=== PATIENT | male | born 2000 | race African-American/Black ===

== ENCOUNTER 2019-07-14 19:46 | Emergency (ER) | payer OTHER ==
[2019-07-14] MEDS ORDERED: Pantoprazole 40 MG Vial IVPUSH ONE (20:17)
[2019-07-14] MEDS ORDERED: Sodium Chloride 0.9% 2.5 ML Syringe FLUSH PRN (20:17)
[2019-07-14] MEDS ORDERED: Aspirin 81 MG Tab.Chew PO ONE (20:17)
[2019-07-14] MEDS ORDERED: Sodium Chloride 0.9% 10 ML Syringe FLUSH PRN (20:17)
--- NOTE | 2019-07-14 20:22 | EDM.PDOC ---
ED HPI GENERAL MEDICAL PROBLEM - General Chief Complaint: General Stated Complaint: PT HAS CHEST PAINS Time Seen by Provider: 07/14/19 20:09 - History of Present Illness INITIAL COMMENTS - FREE TEXT/NARRATIVE: HISTORY AND PHYSICAL: History of present illness: The patient is a 19-year-old male with no significant past medical history who presents with 3 days of lower chest pain/epigastric pain that starts after he eats. The patient says that he has a history of lactose intolerance but he is telling me that every time he eats anything no matter what the food type he gets this discomfort and last for about 10 minutes. He does not take any medication to make it go away. He says that drinking water makes him feel like he is flushing problem out. He has no nausea or vomiting no increased gas and no black or bloody stools. He doesn't have specific right upper or left upper quadrant tenderness and denies any abdominal pain nor any flank pain. He's had no trauma to the area no fevers chills shortness of breath. The discomfort is localized to the lower sternum and does not radiate and is not associated with diaphoresis shortness of breath nausea or lightheadedness. The patient says that he came in tonight because it lasted more than 10 minutes after eating. He says that it started about 6:30, just under 2 hours ago. The pain is similar to all the prior episodes he has had over the last 3 days and he says it occurs after every time that he eats. He is active and plays basketball and says that he doesn't eat junk foods fatty foods fried foods. He says the pain happens with every food not any specific trigger. The patient denies any social history and has no family history of cardiac disease. On my evaluation an EKG the patient says the discomfort is a 1/10 but that "is pushing it". Review of systems: As per history of present illness and below otherwise all systems reviewed and negative. Past medical history: As per history of present illness and as reviewed below otherwise noncontributory. Surgical history: As per history of present illness and as reviewed below otherwise noncontributory. Social history: No reported history of drug or alcohol abuse. Family history: As per history of present illness and as reviewed below otherwise noncontributory. Physical exam: General: Well-developed lean and athletic 19-year-old man who is nontoxic and moves easily in the ED. Vital signs are noted by me HEENT: Atraumatic, normocephalic, negative for conjunctival pallor or scleral icterus, mucous membranes moist, throat clear, neck supple, nontender, trachea midline. Lungs: Clear to auscultation, breath sounds equal bilaterally, chest nontender. No defects deformities crepitus wheezing or stridor Heart: S1S2, regular, negative for clicks, rubs, or JVD. No overt murmurs Abdomen: Soft, nondistended, nontender. Negative for masses or hepatosplenomegaly. Negative for costovertebral tenderness. Pelvis: Stable nontender. Genitourinary: Deferred. Rectal: Deferred. Extremities: Atraumatic, negative for cords or calf pain. Neurovascular unremarkable. No pedal edema or leg asymmetry Neuro: Awake, alert, oriented. Cranial nerves II through XII unremarkable. Cerebellum unremarkable. Motor and sensory unremarkable throughout. Exam nonfocal. Diagnostics: EKG chest x-ray CBC CMP amylase lipase troponin Therapeutics: IV O2 monitor aspirin Protonix Patient is currently asymptomatic and is aware of all testing results. I've advised him to start a food journal and a pain journal to document these episodes of pain and I will give him a prescription for Protonix here and I advised him on reasons to return to the ED Impression: Post prandial chest/epigastric pain Definitive disposition and diagnosis as appropriate pending reevaluation and review of above. chest pain Pain Score (Numeric/FACES): 6 - Related Data Allergies Allergy/AdvReac Type Severity Reaction Status Date / Time lactose Allergy Other Verified 07/14/19 20:15 Home Meds: Home Meds . [No Known Home Meds] 07/14/19 [History] ED ROS GENERAL - Review of Systems Review Of Systems: ROS reveals no pertinent complaints other than HPI. ED EXAM, GENERAL - Physical Exam Exam: See Below (see Dictation) Course - Vital Signs Last Recorded V/S: Last Vital Signs Temp 36.4 C 07/14/19 21:22 Pulse 56 L 07/14/19 21:18 Resp 16 07/14/19 21:18 BP 115/65 07/14/19 21:18 Pulse Ox 97 07/14/19 21:18 - Orders/Labs/Meds Orders: Active Orders 24 hr Category Date Time Status Cardiac Monitoring [RC] . DIRECTED Care 07/14/19 20:17 Active EKG Documentation Completion [RC] STAT Care 07/14/19 19:59 Active Pulse Oximetry [RC] ASDIRECTED Care 07/14/19 20:17 Active Sodium Chloride 0.9% [Saline Flush] Med 07/14/19 20:17 Active 10 ml FLUSH ASDIRECTED PRN Sodium Chloride 0.9% [Saline Flush] Med 07/14/19 20:17 Active 2.5 ml FLUSH ASDIRECTED PRN Saline Lock Insert [OM.PC] Stat Oth 07/14/19 20:17 Ordered Medication Orders Sodium Chloride (Saline Flush) 10 ml FLUSH ASDIRECTED PRN PRN Reason: Keep Vein Open Last Admin: 07/14/19 20:37 Dose: 10 ml Sodium Chloride (Saline Flush) 2.5 ml FLUSH ASDIRECTED PRN PRN Reason: Keep Vein Open Last Admin: 07/14/19 20:37 Dose: 2.5 ml Labs: Laboratory Tests 07/14/19 07/14/19 Range/Units 20:25 20:25 WBC 9.51 (4.0-11.0) K/uL RBC 5.09 (4.50-5.90) M/uL Hgb 14.6 (13.0-17.0) g/dL Hct 44.6 (38.0-50.0) % MCV 87.6 (80.0-98.0) fL MCH 28.7 (27.0-32.0) pg MCHC 32.7 (31.0-37.0) g/dL RDW Std Deviation 41.5 (28.0-62.0) fl RDW Coeff of Christiano 13 (11.0-15.0) % Plt Count 210 (150-400) K/uL MPV 10.60 (7.40-12.00) fL Neut % (Auto) 73.9 (48.0-80.0) % Lymph % (Auto) 19.1 (16.0-40.0) % [place] % (Auto) 6.6 (0.0-15.0) % Eos % (Auto) 0.1 (0.0-7.0) % Baso % (Auto) 0.3 (0.0-1.5) % Neut # (Auto) 7.0 H (1.4-5.7) K/uL Lymph # (Auto) 1.8 (0.6-2.4) K/uL [place] # (Auto) 0.6 (0.0-0.8) K/uL Eos # (Auto) 0.0 (0.0-0.7) K/uL Baso # (Auto) 0.0 (0.0-0.1) K/uL Nucleated RBC % 0.0 /100WBC Nucleated RBCs # 0 K/uL Sodium 141 (136-148) mmol/L Potassium 4.5 (3.5-5.1) mmol/L Chloride 105 (98-107) mmol/L Carbon Dioxide 26.6 (21.0-32.0) mmol/L BUN 23 H (7.0-18.0) mg/dL Creatinine 1.6 H (0.8-1.3) mg/dL Est Cr Clr Drug Dosing 80.16 mL/min Estimated GFR (MDRD) > 60.0 ml/min Glucose 88 (74-106) mg/dL Calcium 8.9 (8.5-10.1) mg/dL Total Bilirubin 0.4 (0.2-1.0) mg/dL AST 24 (15-37) IU/L ALT 24 (14-63) IU/L Alkaline Phosphatase 82 (46-116) U/L Troponin I < 0.050 (0.000-0.056) ng/mL Total Protein 7.5 (6.4-8.2) g/dL Albumin 4.2 (3.4-5.0) g/dL Globulin 3.3 (2.6-4.0) g/dL Albumin/Globulin Ratio 1.3 (0.9-1.6) Amylase 78 (25-115) U/L Lipase 96 (73-393) U/L Meds: Medications Generic Name Dose Route Start Last Admin Trade Name Freq PRN Reason Stop Dose Admin Sodium Chloride 10 ml 07/14/19 20:07/14/19 20:37 Saline Flush FLUSH 10 ml ASDIRECTED PRN Administration Keep Vein Open Sodium Chloride 2.5 ml 07/14/19 20:17 07/14/19 20:37 Saline Flush FLUSH 2.5 ml ASDIRECTED PRN Administration Keep Vein Open Discontinued Medications Generic Name Dose Route Start Last Admin Trade Name Amilcar PRN Reason Stop Dose Admin Aspirin 324 mg 07/14/19 20:17 07/14/19 20:36 Aspirin PO 07/14/19 20:18 324 mg ONETIME ONE Administration Pantoprazole Sodium 80 mg 07/14/19 20:17 07/14/19 20:36 Protonix Iv IVPUSH 07/14/19 20:18 80 mg .BOLUS ONE Administration Departure - Departure Time of Disposition: 21:26 Disposition: Home, Self-Care 01 Condition: Good Clinical Impression: Postprandial epigastric pain, Atypical chest pain - Discharge Information Referrals: PCP,None [Primary Care Provider] - Forms: ED Department Discharge Additional Instructions: The following information is given to patients seen in the emergency department who are being discharged to home. This information is to outline your options for follow-up care. We provide all patients seen in our emergency department with a follow-up referral. The need for follow-up, as well as the timing and circumstances, are variable depending upon the specifics of your emergency department visit. If you don't have a primary care physician on staff, we will provide you with a referral. We always advise you to contact your personal physician following an emergency department visit to inform them of the circumstance of the visit and for follow-up with them and/or the need for any referrals to a consulting specialist. The emergency department will also refer you to a specialist when appropriate. This referral assures that you have the opportunity for followup care with a specialist. All of these measure are taken in an effort to provide you with optimal care, which includes your followup. Under all circumstances we always encourage you to contact your private physician who remains a resource for coordinating your care. When calling for followup care, please make the office aware that this follow-up is from your recent emergency room visit. If for any reason you are refused follow-up, please contact the [facility] emergency department at and ask to speak to the emergency department charge nurse. [facility] Primary care- [place] [address] Please monitor your symptoms and keep a journal of these episodes of pain. Push hydration and avoid caffeinated products. He did land diet until followed up in the clinic and please call and schedule a follow-up appointment with your provider or one of hours for reevaluation further care. Return to ER as needed and as discussed. Please fill and start your Protonix prescription tomorrow - My Orders Last 24 Hours: My Active Orders 07/14/19 20:17 Cardiac Monitoring [RC] . DIRECTED Pulse Oximetry [RC] ASDIRECTED Sodium Chloride 0.9% [Saline Flush] 10 ml FLUSH ASDIRECTED PRN Sodium Chloride 0.9% [Saline Flush] 2.5 ml FLUSH ASDIRECTED PRN Saline Lock Insert [OM.PC] Stat - Assessment/Plan Last 24 Hours: My Active Orders 07/14/19 20:17 Cardiac Monitoring [RC] . DIRECTED Pulse Oximetry [RC] ASDIRECTED Sodium Chloride 0.9% [Saline Flush] 10 ml FLUSH ASDIRECTED PRN Sodium Chloride 0.9% [Saline Flush] 2.5 ml FLUSH ASDIRECTED PRN Saline Lock Insert [OM.PC] Stat
[2019-07-14 20:58] LABS: BLOOD UREA NITROGEN,BUN 23 mg/dL (7.0-18.0); CARBON DIOXIDE,CO2 26.6 mmol/L (21.0-32.0); CHLORIDE,CL 105 mmol/L (98-107); GLUCOSE RANDOM 88 mg/dL (74-106); LIPASE 96 U/L (73-393); POTASSIUM,K 4.5 mmol/L (3.5-5.1); SODIUM,NA 141 mmol/L (136-148)
--- NOTE | 2019-07-14 21:07 | CR ---
INDICATION: Chest pain and shortness of breath. TECHNIQUE: AP upright portable chest. FINDINGS: Monitoring leads overlie the chest wall. The lungs are clear without pneumothorax. Normal heart size and pulmonary vascular pattern with no pleural effusions. Visualized osseous thorax is unremarkable. IMPRESSION: No acute radiographic chest finding. Dictated by Gonzalez Avila MD @ Jul 14 2019 9:05PM Signed by Dr. Gonzalez Avila @ Jul 14 2019 9:06PM
== END 2019-07-14 21:30 | disposition home or self-care (01) ==
LOC: MW.ED 19:46
DX: R10.13 Epigastric pain (principal); R07.89 Other chest pain; Z91.011 Allergy to milk products
CPT/HCPCS: 71045; 80053; 82150; 83690; 84484; 85025; 93005; 96374; 99285; A9270; C9113; 99284

== ENCOUNTER 2019-11-08 14:28 | Emergency (ER) | payer OTHER ==
--- NOTE | 2019-11-08 15:13 | EDM.PDOC ---
ED HPI GENERAL MEDICAL PROBLEM - General Chief Complaint: General Stated Complaint: STUFFY NOSE,BURNING CHEST SENSATION Time Seen by Provider: 11/08/19 14:33 Source of Information: Reports: Patient History Limitations: Reports: No Limitations - History of Present Illness INITIAL COMMENTS - FREE TEXT/NARRATIVE: HISTORY AND PHYSICAL: History of present illness: Patient is a 19-year-old male who presents to the ED today with concern of cough and stuffy/runny nose over the past 3 days. 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 Patient states he has not taken anything for his symptoms. Patient denies any health history. Patient denies fever, chills, chest pain, shortness of breath. Denies headache, neck stiff ness, change in vision, syncope, or near syncope. Denies nausea, vomiting, abdominal pain, diarrhea, constipation, or dysuria. Has not noted any blood in urine or stool. Patient has been eating and drinking appropriately. Review of systems: As per history of present illness and below otherwise all systems reviewed and negative. Past medical history: As per history of present illness and as reviewed below otherwise noncontributory. Surgical history: As per history of present illness and as reviewed below otherwise noncontributory. Social history: See social history for further information Family history: As per history of present illness and as reviewed below otherwise noncontributory. Physical exam: General: Patient is alert, oriented, and in no acute distress. Patient sitting comfortably on exam table. HEENT: Atraumatic, normocephalic, pupils equal and reactive bilaterally, negative for conjunctival pallor or scleral icterus, mucous membranes moist, TMs normal bilaterally, throat clear, neck supple, nontender, trachea midline. No drooling or trismus noted. No meningeal signs. No hot potato voice noted. Lungs: Clear to auscultation, breath sounds equal bilaterally, chest nontender. Dry cough on exam. Heart: S1S2, regular rate and rhythm without overt murmur Abdomen: Soft, nondistended, nontender. Negative for masses or hepatosplenomegaly. Negative for costovertebral tenderness. Pelvis: Stable nontender. Genitourinary: Deferred. Rectal: Deferred. Skin: Intact, warm, dry. No lesions or rashes noted. Extremities: Atraumatic, negative for cords or calf pain. Neurovascular unremarkable. Neuro: Awake, alert, oriented. Cranial nerves II through XII unremarkable. Cerebellum unremarkable. Motor and sensory unremarkable throughout. Exam nonfocal. Notes: Patient is out of the window for treatment with Tamiflu. Discussed importance for follow-up with a primary care provider. Voices understanding and is agreeable to plan of care. Denies any further questions or concerns at this time. Diagnostics: Influenza, Strep, CXR Therapeutics: None Prescription: None Impression: Influenza B Plan: 1. You can alternate ibuprofen and Tylenol as directed for pain and discomfort. 2. Follow-up with a primary care provider as discussed. Return to the ED as needed and as discussed. Definitive disposition and diagnosis as appropriate pending reevaluation and review of above. sinus Pain Score (Numeric/FACES): 4 - Related Data Allergies Allergy/AdvReac Type Severity Reaction Status Date / Time lactose Allergy Other Verified 11/08/19 14:54 Home Meds: Home Meds . [No Known Home Meds] 07/14/19 [History] Past Medical History - Past Health History Medical/Surgical History: Denies Medical/Surgical History - Infectious Disease History Infectious Disease History: Reports: Chicken Pox - Past Surgical History HEENT Surgical History: Reports: Oral Surgery Social & Family History - Family History Family Medical History: Noncontributory - Tobacco Use Smoking Status *Q: Never Smoker - Caffeine Use Caffeine Use: Reports: None - Recreational Drug Use Recreational Drug Use: No ED ROS GENERAL - Review of Systems Review Of Systems: Comprehensive ROS is negative, except as noted in HPI. ED EXAM, GENERAL - Physical Exam Exam: See Below (see dictation) Course - Vital Signs Last Recorded V/S: Last Vital Signs Temp 98.4 F 11/08/19 14:53 Pulse 52 L 11/08/19 14:53 Resp 18 11/08/19 14:53 BP 137/77 11/08/19 14:53 Pulse Ox 100 11/08/19 14:53 - Orders/Labs/Meds Orders: Active Orders 24 hr Category Date Time Status EKG Documentation Completion [RC] STAT Care 11/08/19 15:01 Active Chest 2V [CR] Stat Exams 11/08/19 15:10 Stop Req CULTURE STREP A CONFIRMATION [RM] Stat Lab 11/08/19 14:47 Results STREP SCRN A RAPID W CULT CONF [RM] Stat Lab 11/08/19 14:47 Results Departure - Departure Time of Disposition: 15:27 Disposition: Home, Self-Care 01 Clinical Impression: Influenza B - Discharge Information Referrals: PCP,None [Primary Care Provider] - Forms: ED Department Discharge Additional Instructions: The following information is given to patients seen in the emergency department who are being discharged to home. This information is to outline your options for follow-up care. We provide all patients seen in our emergency department with a follow-up referral. The need for follow-up, as well as the timing and circumstances, are variable depending upon the specifics of your emergency department visit. If you don't have a primary care physician on staff, we will provide you with a referral. We always advise you to contact your personal physician following an emergency department visit to inform them of the circumstance of the visit and for follow-up with them and/or the need for any referrals to a consulting specialist. The emergency department will also refer you to a specialist when appropriate. This referral assures that you have the opportunity for follow-up care with a specialist. All of these measure are taken in an effort to provide you with optimal care, which includes your follow-up. Under all circumstances we always encourage you to contact your private physician who remains a resource for coordinating your care. When calling for follow-up care, please make the office aware that this follow-up is from your recent emergency room visit. If for any reason you are refused follow-up, please contact the [facility] Emergency Department at and asked to speak to the emergency department charge nurse. [facility] Primary Care [address] [place] [id number] [address] [id number] 1. You can alternate ibuprofen and Tylenol as directed for pain and discomfort. 2. Follow-up with a primary care provider as discussed. Return to the ED as needed and as discussed. Sepsis Event Note - Evaluation Sepsis Screening Result: No Definite Risk - Focused Exam Vital Signs: Vital Signs Temp Pulse Resp BP Pulse Ox 11/08/19 14:53 98.4 F 52 L 18 137/77 100 Date Exam was Performed: 11/08/19 Time Exam was Performed: 15:26 - My Orders Last 24 Hours: My Active Orders 11/08/19 14:47 CULTURE STREP A CONFIRMATION [RM] Stat STREP SCRN A RAPID W CULT CONF [RM] Stat 11/08/19 15:01 EKG Documentation Completion [RC] STAT 11/08/19 15:10 Chest 2V [CR] Stat - Assessment/Plan Last 24 Hours: My Active Orders 11/08/19 14:47 CULTURE STREP A CONFIRMATION [RM] Stat STREP SCRN A RAPID W CULT CONF [RM] Stat 11/08/19 15:01 EKG Documentation Completion [RC] STAT 11/08/19 15:10 Chest 2V [CR] Stat
== END 2019-11-08 15:48 | disposition home or self-care (01) ==
LOC: MW.ED 14:28
DX: J10.1 Influenza due to other identified influenza virus with other respiratory manifestations (principal); Z91.011 Allergy to milk products
CPT/HCPCS: 87081; 87804; 87880-QW; 93005; 99282; 99283-25

== ENCOUNTER 2019-11-21 19:24 | Emergency (ER) | payer OTHER ==
--- NOTE | 2019-11-21 19:58 | EDM.PDOC ---
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 He says that he is here to get an x-ray because although he has been working with the link trainer maintenance man he is still having pain in the joint of the ankle and he is concerned that they missed something. He did not see an orthopedic provider or an ED provider at the time of the injury. They have been doing appropriate symptomatic care. He does not feel like the ankle is giving out and he has no distal foot pain or proximal tib -fib or knee pain. There were no associated injuries and there are no neurosensory changes in the foot. Review of systems: As per history of present illness and below otherwise all systems reviewed and negative. Past medical history: As per history of present illness and as reviewed below otherwise noncontributory. Surgical history: As per history of present illness and as reviewed below otherwise noncontributory. Social history: No reported history of drug or alcohol abuse. Family history: As per history of present illness and as reviewed below otherwise noncontributory. Physical exam: General: Well-developed well-nourished man who is nontoxic and vital signs are noted by me HEENT: Atraumatic, normocephalic, , negative for conjunctival pallor or scleral icterus, mucous membranes moist, throat clear, neck supple, nontender, trachea midline. Lungs: Clear to auscultation, breath sounds equal bilaterally, chest nontender. Heart: S1S2, regular, negative for clicks, rubs, or JVD. Abdomen: Soft, nondistended, nontender. Normal active bowel sounds Pelvis: Stable nontender. Genitourinary: Deferred. Rectal: Deferred. Extremities: Atraumatic, full range of motion of all extremities including the right ankle where there is no soft tissue swelling ecchymosis or skin changes. There is some mild tenderness with palpation at the lateral malleolus and the proximal cuboids of the foot but there are no defects or deformities and there is no gross ankle joint instability. Neurovascular is normal. The proximal tib -fib knee and distal foot and metatarsals are intact without tenderness. The legs are negative for cords or calf pain. Neurovascular unremarkable. Neuro: Awake, alert, oriented. Cranial nerves II through XII unremarkable. Cerebellum unremarkable. Motor and sensory unremarkable throughout. Exam nonfocal. Diagnostics: XR right ankle Therapeutics: Declines pain meds Impression: Ankle injury subacute stable, right Definitive disposition and diagnosis as appropriate pending reevaluation and review of above. Right Ankle Pain Score (Numeric/FACES): 5 - Related Data Allergies Allergy/AdvReac Type Severity Reaction Status Date / Time lactose Allergy Other Verified 11/21/19 19:36 Home Meds: Home Meds . [No Known Home Meds] 07/14/19 [History] Past Medical History - Past Health History Medical/Surgical History: Denies Medical/Surgical History - Infectious Disease History Infectious Disease History: Reports: Chicken Pox - Past Surgical History HEENT Surgical History: Reports: Oral Surgery Social & Family History - Family History Family Medical History: Noncontributory - Tobacco Use Smoking Status *Q: Never Smoker - Caffeine Use Caffeine Use: Reports: None - Recreational Drug Use Recreational Drug Use: Yes Recreational Drug Type: Reports: Marijuana/Hashish Other Recreational Drug Type: last used April 2019 Recreational Drug Use Frequency: Rarely Review of Systems - Review of Systems Review Of Systems: Comprehensive ROS is negative, except as noted in HPI. ED EXAM, GENERAL - Physical Exam Exam: See Below (See dictation) Course - Vital Signs Last Recorded V/S: Last Vital Signs Temp 36.6 C 11/21/19 19:36 Pulse 60 11/21/19 19:36 Resp 16 11/21/19 19:36 BP 155/70 H 11/21/19 19:36 Pulse Ox 100 11/21/19 19:36 Departure - Departure Time of Disposition: 21:01 Disposition: Home, Self-Care 01 Condition: Good Clinical Impression: Right ankle injury Qualifiers: Encounter type: initial encounter Qualified Code(s): S99.911A - Unspecified injury of right ankle, initial encounter - Discharge Information Referrals: PCP,None [Primary Care Provider] - Forms: ED Department Discharge Additional Instructions: The following information is given to patients seen in the emergency department who are being discharged to home. This information is to outline your options for follow-up care. We provide all patients seen in our emergency department with a follow-up referral. The need for follow-up, as well as the timing and circumstances, are variable depending upon the specifics of your emergency department visit. If you don't have a primary care physician on staff, we will provide you with a referral. We always advise you to contact your personal physician following an emergency department visit to inform them of the circumstance of the visit and for follow-up with them and/or the need for any referrals to a consulting specialist. The emergency department will also refer you to a specialist when appropriate. This referral assures that you have the opportunity for followup care with a specialist. All of these measure are taken in an effort to provide you with optimal care, which includes your followup. Under all circumstances we always encourage you to contact your private physician who remains a resource for coordinating your care. When calling for followup care, please make the office aware that this follow-up is from your recent emergency room visit. If for any reason you are refused follow-up, please contact the [facility] emergency department at and ask to speak to the emergency department charge nurse. [facility] Specialty Care - Orthopedic Clinic Professional [address], [address] [place] [address] Continue with symptomatic care as you have been doing and follow-up with our economic specialist for recheck this week if the pain is persisting. Return to ER as needed and as discussed. Use [id number] medications as you choose for pain management. Sepsis Event Note - Evaluation Sepsis Screening Result: No Definite Risk - Focused Exam Vital Signs: Vital Signs Temp Pulse Resp BP Pulse Ox 11/21/19 19:36 36.6 C 60 16 155/70 H 100 Date Exam was Performed: 11/21/19 Time Exam was Performed: 21:00
--- NOTE | 2019-11-21 20:51 | CR ---
Right ankle: 3 views the right ankle were obtained. Comparison: No previous study. Lucent line is noted within the lateral malleolus. This is most likely due to incompletely ossified growth plate. No surrounding soft tissue swelling is seen to indicate definite fracture. Ankle mortise is symmetric. No additional abnormality is seen. Impression: 1. Nothing acute is appreciated on right ankle exam. 2. If patient remains symptomatic, recommend repeat study in 10-14 days. Diagnostic code #2 This report was dictated in [place] Standard Time
== END 2019-11-21 21:10 | disposition home or self-care (01) ==
LOC: MW.ED 19:24
DX: S99.911A Unspecified injury of right ankle, initial encounter (principal); Z91.011 Allergy to milk products; X50.1XXA Overexertion from prolonged static or awkward postures, initial encounter; Y93.67 Activity, basketball
CPT/HCPCS: 73610-26-RT; 73610-RT; 99283; 99283-25